=== PATIENT | female | born 1995 | race Caucasian/White ===

== ENCOUNTER 2023-03-08 10:04 | Emergency (ER) | payer OTHER ==
[~2023-03-08] VITALS: Ht 172.7 cm; Wt 102.1 kg
[~2023-03-08 10:04] MED LIST: ALBU90OI INH; CYCL10 PO; IBUP600 PO; ONDA4ODT MM; RXONDA4ODT MM
[2023-03-08 10:07] VITALS: BP 133/93
[2023-03-08] MEDS ORDERED: TOPI25C PO (10:24)
[2023-03-08] MEDS ORDERED: SUMATRIPTAN SUC25 MG (10:25)
[2023-03-08] MEDS ORDERED: BUTALB-ACETAMI1 EAC7 (10:27)
[2023-03-08] MEDS ORDERED: PSEU120ER PO (12:45)
== END 2023-03-08 12:41 | disposition home or self-care (01) ==
LOC: ER 10:04
DX: R51.9 Headache, unspecified (principal)
CPT/HCPCS: 36415; 70450; 96374; 96375; 99284-25; J0780; J1100; J1200; J1885; J7030

== ENCOUNTER 2023-09-18 04:06 | Emergency (ER) | payer OTHER ==
[~2023-09-18] VITALS: Ht 172.7 cm; Wt 97.5 kg
[~2023-09-18 04:06] MED LIST changes: +BUTALB-ACETAMI1 EAC7; +PSEU120ER PO; +SUMATRIPTAN SUC25 MG; +TOPI25C PO
[2023-09-18 05:07] LABS: Source, Urine Clean Catch
[2023-09-18 05:25] LABS: Appearance, Urine Hazy (Clear); Bilirubin, Urine Neg (Neg); Blood, Urine 4+ (Neg); Color, Urine Yellow (P-Yellow); Glucose Qualitative, Urine Neg (Neg); Ketones, Urine Neg (Neg); Leukocyte Esterase, Urine 1+ (Neg); Nitrite, Urine Neg (Neg); Protein, Urine 1+ (Neg); Specific Gravity, Urine 1.025 (1.003-1.022); Urobilinogen, Urine NORM (Normal)
[2023-09-18 05:35] LABS: Bacteria Mod /hpf; Red Blood Cells, Urine 0-2 /hpf (0-2); Squamous Epithelial Cells Mod /hpf (Few)
[2023-09-18] MEDS ORDERED: Ibuprofen600 MG PO (06:20)
[2023-09-18 06:45] VITALS: BP 119/83
== END 2023-09-18 06:50 | disposition home or self-care (01) ==
LOC: ER 04:06
PROVIDERS: Emergency Medicine
DX: S43.401A Unspecified sprain of right shoulder joint, initial encounter (principal); X58.XXXA Exposure to other specified factors, initial encounter
CPT/HCPCS: 81001; 87081; 87086; 87430; 93005; 93010; 99285-25; A9270

== ENCOUNTER 2024-05-27 11:55 | Emergency (ER) | payer OTHER ==
[~2024-05-27] VITALS: Ht 170.2 cm; Wt 97.5 kg
[~2024-05-27 11:55] MED LIST changes: +Ibuprofen600 MG PO
[2024-05-27 12:09] VITALS: BP 129/92
[2024-05-27] MEDS ORDERED: Triamcinolone Inj Susp 40 MG / ML 1ML Vial IM ONE (12:15)
== END 2024-05-27 13:59 | disposition home or self-care (01) ==
LOC: ER 11:55
DX: L25.9 Unspecified contact dermatitis, unspecified cause (principal); Z79.899 Other long term (current) drug therapy
CPT/HCPCS: 96372; 99282-25; J3301